=== PATIENT | female | born 1955 | race Caucasian/White ===

== ENCOUNTER 2021-01-02 20:48 | Emergency (ER) | payer OTHER, SELFPAY ==
[2021-01-02 20:49] VITALS: BP 130/71; PULSE 91; RESP 16; TEMP 36.5; O2SAT 95; BMI 20.5
--- NOTE | 2021-01-02 22:09 | CT_ITS ---
EXAMINATION : Head CT w/out contrast HISTORY : vertigo COMPARISON : None. TECHNIQUE : Multiple contiguous axial images were obtained from the skull base to the vertex without intravenous contrast. A radiation dose optimization technique was used for this scan. FINDINGS : The ventricles and sulci are normal in size. There is no evidence for acute intracranial hemorrhage, mass effect, or midline shift. There is no extra-axial fluid collection. There is normal kramer-white differentiation, without CT evidence of acute ischemia or infarct. The skull base and calvarium are unremarkable. The orbits are unremarkable. Severe mucosal thickening of the maxillary, sphenoid, frontal sinuses and ethmoid air cells. The mastoid air cells are well-aerated. The soft tissues are unremarkable. CT/Brain/Head without Contrast IMPRESSION: No acute intracranial abnormality. Severe sinusitis. Consider ENT consult. Electronically Signed: Abraham Harkins MD at 23:01 EDT Tel , Service support ,
--- NOTE | 2021-01-02 22:10 | EX.ED.DYSGE1 ---
HPI History of Present Illness Chief Complaint: Dizziness Narrative Narrative: Patient presents with vertigo that started when she woke up this morning. She describes as a spinning sensation. She has no vision changes no facial weakness, she is denying chest pain or shortness of breath. She has no confusion. PFSH PFSH Home Medications ascorbic acid (vitamin C) [Vitamin C] 500 mg PO DAILY 01/02/21 [History Last Taken Unknown] meclizine 25 mg PO DAILY PRN #14 tab 01/02/21 [Rx Last Taken Unknown] Allergy/AdvReac Type Severity Reaction Status Date / Time No Known Allergies Allergy Verified 01/02/21 20:51 Social History Smoking Status: Never smoker ROS ROS ED ROS Narrative Past medical history: No medical history Medications: Reviewed Social history: Noncontributory Review of systems: All systems negative except as indicated General: No fever Eyes: No visual changes ENT: No upper airway congestion, normal voice Neck: No neck pain Cardiovascular: No chest pain Respiratory: No shortness of breath or cough Gastrointestinal: No abdominal pain, nausea vomiting or diarrhea Genitourinary: No dysuria Musculoskeletal: Denies myalgias no difficulty with ambulation Skin: No rash Neurological: No memory loss, confusion or any focal weakness. Vertigo as in HPI Psych: No recent behavioral changes Hematologic: No easy bleeding or easy bruising EXAM Physical Exam Narrative Exam Narrative: Physical exam General: Well nourished, Well developed, No Acute Distress Head: Normocephalic, Atraumatic Eyes: Conjunctiva not pale ENT: Moist mucous membranes Neck: Supple, Nontender, No lymphadenopathy Cardiovascular: Regular rate, Regular rhythm Respiratory: No distress, CTA bilaterally Abdomen: Soft, Nontender, Nondistended Back: Nontender, Normal Inspection. Negative for: CVA tenderness Extremities: Nontender, No edema Skin: Normal color, No rash Neurological: Alert, Normal Strength, Normal Sensation. She does have rightward saccade. Romberg is negative. Cerebellar is normal Psychological: Normal affect Const Vital Signs: 01/02/21 20:49 Temperature 97.7 F L Temperature Source Temporal Pulse Rate 91 Respiratory Rate 16 Blood Pressure 130/71 H Blood Pressure Mean 90 Pulse Ox 95 Oxygen Delivery Method Room Air MDM MDM MDM Narrative Medical decision making narrative: Patient has a normal CT and blood work, she significantly improved with Zofran and meclizine. Signs and symptoms are consistent with peripheral vertigo. I will refer to ENT otherwise I will discharge her in stable condition. Lab Data Labs: Laboratory Results - last 24 hr 01/02/21 01/02/21 22:30 22:30 WBC 6.3 RBC 4.22 Hgb 13.2 Hct 38.2 MCV 90.5 MCH 31.3 MCHC 34.6 RDW Std Deviation 40.4 RDW Coeff of Thompson 12.3 Plt Count 212 MPV 9.6 Immature Gran % (Auto) 0.300 Neut % (Auto) 80.0 H Lymph % (Auto) 15.6 L Kingsbury % (Auto) 3.7 Eos % (Auto) 0.2 Baso % (Auto) 0.2 Absolute Neuts (auto) 5.0 Absolute Lymphs (auto) 0.98 Nucleated RBC % 0 Sodium 135 L Potassium 3.5 Chloride 104 Carbon Dioxide 24.0 Anion Gap 7 BUN 12 Creatinine 0.60 Estim Creat Clear Calc 86.14 Est GFR (MDRD) Af Amer 130 Est GFR (MDRD) Non-Af 108 BUN/Creatinine Ratio 20.1 H Glucose 106 Calcium 8.8 Total Bilirubin 0.70 AST 19 ALT 26 Alkaline Phosphatase 44 L Total Protein 7.1 Albumin 3.8 Globulin 3.3 Albumin/Globulin Ratio 1.2 Radiography Diagnostic Testing: Radiology Impression Brain CT 01/02/21 22:09 IMPRESSION: No acute intracranial abnormality. Severe sinusitis. Consider ENT consult. Electronically Signed: Abraham Harkins MD at 23:01 EDT Tel , Service support , Discharge Plan Triage Chief Complaint: Dizziness ED Provider: Marshall Warner Dx/Rx/DC Orders Clinical Impression: Vertigo Instructions: ED Vertigo, Unspecified Prescriptions: New meclizine 25 mg tablet 25 mg PO DAILY PRN (Reason: dizziness) Qty: 14 RF: 0 No Action ascorbic acid (vitamin C) [Vitamin C] 500 mg Tablet 500 mg PO DAILY RF: 0 Primary Care Provider: Love Meza Referrals: Love Meza DO [Primary Care Provider] - Miky Flaherty MD [STAFF PHYSICIAN] - 3-5 Days Disposition Disposition: Home, Self Care
[2021-01-02] MEDS: Ondansetron 4 MG/2 ML Vial IV (22:27)
[2021-01-02] MEDS: Meclizine HCl 25 MG Tablet PO (22:33)
[2021-01-02 22:47] LABS: Absolute Lymphocyte Count 0.98 X10^3/uL (0.83-4.51); Basophil# 0.01 X10^3/uL; Basophil% 0.2 % (0-1); Eosinophil# 0.01 X10^3/uL; Eosinophils% 0.2 % (0-5); Hematocrit 38.2 % (37-47); Hemoglobin 13.2 g/dL (12.0-15.0); Lymphocyte # 0.98 X10^3/ul (0.83-4.51); Lymphocyte % 15.6 % (19-41); Mean Corp Hgb Conc 34.6 g/dL (32-36); Mean Corpuscular Hgb 31.3 pg (27.0-32.0); Mean Corpuscular Volume 90.5 fL (81-99); Mean Platelet Vol. 9.6 fl (6.2-12.0); Monocyte# 0.23 X10^3/uL; Monocyte% 3.7 % (0-10); NRBC Flagged by Analyzer 0 % (0-5); Neutrophil # 5.03 X10^3/uL (2.7-7.7); Platelet Count 212 K/mm3 (150-450); RBC Distribution Width CV 12.3 % (11.6-14.6); RBC Distribution Width SD 40.4 fl (35.1-43.9); Red Blood Count 4.22 M/mm3 (4.2-5.4); White Blood Count 6.3 K/mm3 (4.4-11.0)
[2021-01-02 23:05] LABS: ALB/GLOB Ratio 1.2 RATIO (0.9-2.4); AST(SGOT) 19 U/L (15-37); Alanine Aminotransfer ALT/SGPT 26 U/L (13-56); Albumin, Serum 3.8 g/dL (3.2-5.0); Alkaline Phosphatase 44 U/L (45-117); Anion Gap 7 (5-15); BUN 12 mg/dL (7-18); BUN/Creat Ratio 20.1 RATIO (10-20); Calcium,Total 8.8 mg/dL (8.5-10.1); Chloride 104 mmol/L (98-107); EST Glomerular Filtration Rate 108 mL/min (>60); Est Glom Filt Rate - Afr Amer 130 mL/min (>60); Estimated Creatinine Clearance 86.14 ml/min; Globulin 3.3 g/dL (2.2-4.2); Glucose 106 mg/dL (74-106); Potassium 3.5 mmol/L (3.5-5.1); Protein, Total 7.1 g/dL (6.4-8.2); Sodium Level 135 mmol/L (136-145)
[2021-01-02 23:37] VITALS: PULSE 64; RESP 15; O2SAT 99
== END 2021-01-02 23:38 | disposition home or self-care (01) ==
PROVIDERS: Emergency Provider Emergency Medicine; PCP Internal Medicine
DX: R42 Dizziness and giddiness (principal)
CPT/HCPCS: 70450; 80053; 85025; 96374; 99283; J7040; A4216; J2405

== ENCOUNTER → 2022-09-09 | Outpatient (CLI) | payer MEDICARE, SELFPAY ==
--- NOTE | 2022-09-09 09:34 | BI_ITS ---
MAMMOGRAPHY - BILATERAL SCREENING REASON FOR EXAM: Female, 66 years old. Routine annual screening examination. PERTINENT HISTORY: Non-contributory. TECHNIQUE: Digital bilateral breast nicky (3D mammographic acquisition) in the CC and MLO projections. 2-D mediolateral oblique (MLO) and craniocaudad (CC) views of both breasts were obtained. CAD: Full Field Digital Mammography with Computer Added Detection was performed. COMPARISON: Comparison is made with prior study dated February 06, 2014. FINDINGS: Breast Composition: There are scattered areas of fibroglandular density. There are no dominant masses or suspicious calcifications. Scattered bilateral secretory calcifications. No other significant abnormalities are identified. There has been no significant change since the prior study. BI/SCRN MAMM (CAD)W/NICKY BILAT IMPRESSION: Stable bilateral screening mammogram. Yearly follow-up mammogram recommended. (A) ASSESSMENT CATEGORY: BIRADS Category 2: Benign. A letter regarding these results will be sent to the patient by the facility within 30 days. Approximately 10% of breast cancers are not detected by mammography. A normal mammogram should not delay biopsy of a clinically suspicious abnormality. [id number] Electronically Signed: Denny Crisostomo MD at 13:11 EST ,
--- NOTE | 2022-09-09 09:40 | BD_ITS ---
STUDY: DUAL ENERGY X-RAY ABSORPTIOMETRY / DXA REASON FOR EXAM: Female, 66 years old. [id number] TECHNIQUE: Bone Mineral Density (BMD) measurements of lumbar spine and bilateral hips were obtained. COMPARISON: Comparison is made with prior study February 06, 2014. FINDINGS: Lumbar Spine (L1-L4): g/cm2 (0.899) / T-score (-1.3) / Z-score (0.5) Findings are suggestive of osteopenia with a low fracture risk. Left Femur Total: g/cm2 (0.790) / T-score (-1.2) / Z-score (0.0) Left Femoral Neck: g/cm2 (0.680) / T-score (-1.5) / Z-score (0.0) Right Femur Total: g/cm2 (0.789) / T-score (-1.3) / Z-score (0.0) Right Femoral Neck: g/cm2 (0.696) / T-score (-1.4) / Z-score (0.2) The T-Scores on the most recent prior examination were: Lumbar Spine (L1-L4): There has been worsening of bone density since the previous examination. Left Femur Total: which represents a worsening of 11%. Right Femur Total: which represents a worsening of 17.1%. BD/Dexa Bone Density Study IMPRESSION: The patient is considered osteopenic as outlined below according to World Hemant Organization (WHO) criteria with a low fracture risk. There has been worsening of bone density since the previous examination. Reference Information: The T-score is the number of standard deviations above or below the standard which is normal for young adults at their peak bone mineral density. The World Health Organization (WHO) interprets the T-scores as follows: Above -1 Normal bone density Between -1 and -2.5 Osteopenia Equal to / or below -2.5 Osteoporosis As a practical clinical guideline, osteopenia may be graded as follows: Mild -1 through -1.5 Moderate -1.6 through -2.0 Severe -2.1 through -2.4 The Z-score is the number of standard deviations above or below age-matched controls. A Z-score of less than -1.5 would be considered abnormal. References: 1. NIH Osteoporosis and Related Bone Diseases www osteo.org 2. International Society for Clinical Densitometry www iscd.org 3. National Osteoporosis Foundation www nof.org Electronically Signed: Denny Crisostomo MD at 8:12 EST ,
== END | disposition home or self-care (01) ==
PROVIDERS: PCP Internal Medicine; Visit Provider Internal Medicine
DX: Z13.820 Encounter for screening for osteoporosis (principal); Z78.0 Asymptomatic menopausal state; Z12.31 Encounter for screening mammogram for malignant neoplasm of breast
CPT/HCPCS: 77063; 77067; 77080

== ENCOUNTER → 2023-07-07 | Outpatient (CLI) | payer MEDICARE, SELFPAY ==
--- OUTSIDE RECORDS SUMMARY | 2023-07-07 17:00 | XMS RPT_ITS | CCD ---
Author Name Unknown Address [address] [place] [address] Organization [facility] Care Team Providers Care Ropeman Name Role Phone Love Meza Unavailable Roxanne Sequeira Unavailable Fast, Gina A Unavailable Leonor Martinez Unavailable Unavailable Unavailable Unavailable TAY CAMEJO Attending Unavailable TAY CAMEJO Primary Care Unavailable TAY CAMEJO Admitting Unavailable SusanaLara tran DOhleen Unavailable Dr. Roxanne Sequeira MD Unavailable Fast DO, Gina A Unavailable Leonor Martinez RN Unavailable Unavailable Unavailable Unavailable Susana DO, Love Unavailable [phone] VIDEO SOFTWARE ENGINEER, Kayela Unavailable Unavailable Susana DO, Love Attending Unavailable Fast DO, Gina A Referring Unavailable Susana DO Love Consulting Unavailable Slarb FIELD SERVICER, Cecilia Unavailable Unavailable Medications Completed/Discontinued Medications Medication Drug Class(es) Dates Sig (Normalized) Sig (Original) ciprofloxacin 500 mg oral tablet (10 sources) Quinolone Antimicrobial Start: 12-03-2015 End: 03-21-2018 take 1 tablet by mouth twice daily Cipro 500 MG Oral Tablet 1 (one) Tablet bid for 0 days Quantity: 20 {Tablet} Refills: 0 Ordered: 21-Mar-2018 Leonor Martinez RN Start : 03-Dec-2015 End : 21-Mar-2018 Inactive Herbal vitamins (3 sources) Herbal vitamins tablets daily Active Problems Active Problems Problem Classification Problem Date Documented Da te Episodic/Chronic Abdominal pain (17 sources) Acute abdominal pain; Translations: [Abdominal pain, acute, left lower quadrant (Renamed from Acute abdominal pain in left lower quadrant)] Resolved: 03-21-2018 03-21-2018 Episodic Adjustment disorders (20 sources) Reaction to severe stress, unspecified; Translations: [Stress-related problem] 07-25-2018 Chronic Past or Other Problems Problem Classification Problem Date Documented Date Episodic/Chronic Pneumonia (except that caused by tuberculosis or sexually transmitted disease) (2 sources) Pneumonia (except that caused by tuberculosis or sexually transmitted disease) Residual codes; unclassified (2 sources) Needs influenza immunization; Translations: [Need for prophylactic vaccination and inoculation against influenza] Resolved: 12-18-2013 04-09-2015 Episodic Unclassified (3 sources) Postmenopausal (Renamed from Postmenopausal status) Unclassified (10 sources) Abortions/Miscarriage s; Translations: [Abortions/Miscarriag es] 07-25-2018 Results Test Name Value Interpretation Reference Range Facil ity Vital Signs Date Time Vital Sign Value Performing Clinician Facility 09-21-2022 10:17-0400 Body height 163.83 cm Cecilia Suarez LPN [facility] Work Phone: 09-21-2022 10:17-0400 Body mass index (BMI) [Ratio] 22.88 kg/m2 Cecilia Suarez LPN [facility] Work Phone: 09-21-2022 10:17-0400 Body surface area Derived from formula 1.67 m2 Cecilia Suarez LPN [facility] Work Phone: 09-21-2022 10:17-0400 Body temperature 96.2 [degF] Cecilia Suarez LPN [facility] Work Phone: Encounters Encounter Date Encounter Type Care Provider Facility Start: 09-21-2022 End: 09-21-2022 Office outpatient visit 15 minutes Love Meza DO Work Phone: [facility] Start: 09-21-2022 Review Love larkin DO Work Phone: [facility] Start: 09-11-2022 ambulatory Love Meza DO [facility] Start: 08-10-2022 End: 08-12-2022 Patient encounter procedure Love Meza DO Work Phone: [facility] Procedures Date Procedure Procedure Detail Performing Clinician Start: 09-09-2022 End: 09-10-2022 Dexa Bone Density Study Procedure Note: See Note; NOTES: [facility] Imaging Services [address] [place] [address] Dexa Bone Density Study MR#: [id number] Acct: [id number] Name: MARY MG Rep #: [id number] : 1955 F 66 From: Denny johnson MD PCP: Dr. Love Meza, DO Status: [facility] CLI Study: Dexa Bone Density Study Date of Exam: 09/09/22 Exam# [id number] Ordering Dr: Love Meza DO STUDY: DUAL ENERGY X-RAY ABSORPTIOMETRY / DXA REASON FOR EXAM: Female, 66 years old. Z780 TECHNIQUE: Bone Mineral Density (BMD) measurements of lumbar spine and bilateral hips were obtained. COMPARISON: Comparison is made with prior study February 06, 2014. FINDINGS: Lumbar Spine (L1-L4): g/cm2 (0.899) / T-score (-1.3) / Z-score (0.5) Findings are suggestive of osteopenia with a low fracture risk. Left Femur Total: g/cm2 (0.790) / T-score (-1.2) / Z-score (0.0) Left Femoral Neck: g/cm2 (0.680) / T-score (-1.5) / Z-score (0.0) Right Femur Total: g/cm2 (0.789) / T-score (-1.3) / Z-score (0.0) Right Femoral Neck: g/cm2 (0.696) / T-score (-1.4) / Z-score (0.2) The T-Scores on the most recent prior examination were: Lumbar Spine (L1-L4): There has been worsening of bone density since the previous examination. Left Femur Total: which represents a worsening of 11%. Right Femur Total: which represents a worsening of 17.1%. BD/Dexa Bone Density Study IMPRESSION: The patient is considered osteopenic as outlined below according to World Hemant Organization (WHO) criteria with a low fracture risk. There has been worsening of bone density since the previous examination. Reference Information: The T-score is the number of standard deviations above or below the standard which is normal for young adults at their peak bone mineral density. The World Health Organization (WHO) interprets the T-scores as follows: Above -1 Normal bone density Between -1 and -2.5 Osteopenia Equal to / or below -2.5 Osteoporosis As a practical clinical guideline, osteopenia may be graded as follows: Mild -1 through -1.5 Moderate -1.6 through -2.0 Severe -2.1 through -2.4 The Z-score is the number of standard deviations above or below age-matched controls. A Z-score of less than -1.5 would be considered abnormal. References: 1. NIH Osteoporosis and Related Bone Diseases www osteo.org 2. International Society for Clinical Densitometry www iscd.org 3. National Osteoporosis Foundation www nof.org Electronically Signed: Denny Crisostomo MD at 8:12 EST Reading Location ID and State: [facility] / [place] , Service support , CC: Dr. Love Meza DO Hardwood Floor Installer: Signed Love Meza DO Work Phone: Start: 09-09-2022 End: 09-09-2022 SCRN MAMM (CAD)W/NICKY BILAT Procedure Note: See Note; NOTES: [facility] Imaging Services [address] [place] [address] SCRN MAMM (CAD)W/NICKY BILAT MR#: [id number] Acct: [id number] Name: MARY MG Rep #: [id number] : 1955 F 66 From: Denny johnson MD PCP: Dr. Love Meza, DO Status: [facility] Study: SCRN MAMM (CAD)W/NICKY BILAT Date of Exam: 02/24 Exam# [id number] Ordering Dr: Love Meza DO MAMMOGRAPHY - BILATERAL SCREENING REASON FOR EXAM: Female, 66 years old. Routine annual screening examination. PERTINENT HISTORY: Non-contributory. TECHNIQUE: Digital bilateral breast nicky (3D mammographic acquisition) in the CC and MLO projections. 2-D mediolateral oblique (MLO) and craniocaudad (CC) views of both breasts were obtained. CAD: Full Field Digital Mammography with Computer Added Detection was performed. COMPARISON: Comparison is made with prior study dated February 06, 2014. FINDINGS: Breast Composition: There are scattered areas of fibroglandular density. There are no dominant masses or suspicious calcifications. Scattered bilateral secretory calcifications. No other significant abnormalities are identified. There has been no significant change since the prior study. BI/SCRN MAMM (CAD)W/NICKY BILAT IMPRESSION: Stable bilateral screening mammogram. Yearly follow-up mammogram recommended. (A) ASSESSMENT CATEGORY: BIRADS Category 2: Benign. A letter regarding these results will be sent to the patient by the facility within 30 days. Approximately 10% of breast cancers are not detected by mammography. A normal mammogram should not delay biopsy of a clinically suspicious abnormality. [id number] Electronically Signed: Denny Crisostomo MD at 13:11 EST , CC: Dr. Love Meza DO Hardwood Floor Installer: Signed Love Meza DO Work Phone: Start: 01-02-2021 End: 01-02-2021 Emergency Department Summary Comments: See Note; NOTES: [facility] Medical Records Department [address] [place] [address] Emergency Department Summary 01/02/21 MR#: [id number] Acct: [id number] Name: MARY MG Rep #: [id number] : 1955 65 From: Marshall Warner MD PCP: Dr. Love Meza DO Status:REG ER Location: ED HPI History of Present Illness Chief Complaint: Dizziness Narrative Narrative: Patient presents with vertigo that started when she woke up this morning. She describes as a spinning sensation. She has no vision changes no facial weakness, she is denying chest pain or shortness of breath. She has no confusion. PFSH PFSH Home Medications ascorbic acid (vitamin C) [Vitamin C] 500 mg PO DAILY 01/02/21 [History Last Taken Unknown] meclizine 25 mg PO DAILY PRN #14 tab 01/02/21 [Rx Last Taken Unknown] Allergy/AdvReac Type Severity Reaction Status Date / Time No Known Allergies Allergy Verified 01/02/21 20:51 Social History Smoking Status: Never smoker ROS ROS ED ROS Narrative Past medical history: No medical history Medications: Reviewed Social history: Noncontributory Review of systems: All systems negative except as indicated General: No fever Eyes: No visual changes ENT: No upper airway congestion, normal voice Neck: No neck pain Cardiovascular: No chest pain Respiratory: No shortness of breath or cough Gastrointestinal: No abdominal pain, nausea vomiting or diarrhea Genitourinary: No dysuria Musculoskeletal: Denies myalgias no difficulty with ambulation Skin: No rash Neurological: No memory loss, confusion or any focal weakness. Vertigo as in HPI Psych: No recent behavioral changes Hematologic: No easy bleeding or easy bruising EXAM Physical Exam Narrative Exam Narrative: Physical exam General: Well nourished, Well developed, No Acute Distress Head: Normocephalic, Atraumatic Eyes: Conjunctiva not pale ENT: Moist mucous membranes Neck: Supple, Nontender, No lymphadenopathy Cardiovascular: Regular rate, Regular rhythm Respiratory: No distress, CTA bilaterally Abdomen: Soft, Nontender, Nondistended Back: Nontender, Normal Inspection. Negative for: CVA tenderness Extremities: Nontender, No edema Skin: Normal color, No rash Neurological: Alert, Normal Strength, Normal Sensation. She does have rightward saccade. Romberg is negative. Cerebellar is normal Psychological: Normal affect Const Vital Signs: 01/02/21 20:49 Temperature 97.7 F L Temperature Source Temporal Pulse Rate 91 Respiratory Rate 16 Blood Pressure 130/71 H Blood Pressure Mean 90 Pulse Ox 95 Oxygen Delivery Method Room Air MDM MDM MDM Narrative Medical decision making narrative: Patient has a normal CT and blood work, she significantly improved with Zofran and meclizine. Signs and symptoms are consistent with peripheral vertigo. I will refer to ENT otherwise I will discharge her in stable condition. Lab Data Labs: Laboratory Results - last 24 hr 01/02/21 01/02/21 22:30 22:30 WBC 6.3 RBC 4.22 Hgb 13.2 Hct 38.2 MCV 90.5 MCH 31.3 MCHC 34.6 RDW Std Deviation 40.4 RDW Coeff of Thompson 12.3 Plt Count 212 MPV 9.6 Immature Gran % (Auto) 0.300 Neut % (Auto) 80.0 H Lymph % (Auto) 15.6 L [place] % (Auto) 3.7 Eos % (Auto) 0.2 Baso % (Auto) 0.2 Absolute Neuts (auto) 5.0 Absolute Lymphs (auto) 0.98 Nucleated RBC % 0 Sodium 135 L Potassium 3.5 Chloride 104 Carbon Dioxide 24.0 Anion Gap 7 BUN 12 Creatinine 0.60 Estim Creat Clear Calc 86.14 Est GFR (MDRD) Af Amer 130 Est GFR (MDRD) Non-Af 108 BUN/Creatinine Ratio 20.1 H Glucose 106 Calcium 8.8 Total Bilirubin 0.70 AST 19 ALT 26 Alkaline Phosphatase 44 L Total Protein 7.1 Albumin 3.8 Globulin 3.3 Albumin/Globulin Ratio 1.2 Radiography Diagnostic Testing: Radiology Impression Brain CT 01/02/21 22:09 IMPRESSION: No acute intracranial abnormality. Severe sinusitis. Consider ENT consult. Electronically Signed: bAraham Harkins MD at 23:01 EDT Tel , Service support , Discharge Plan Triage Chief Complaint: Dizziness ED Provider: Marshall Warner Dx/Rx/DC Orders Clinical Impression: Vertigo Instructions: ED Vertigo, Unspecified Prescriptions: New meclizine 25 mg tablet 25 mg PO DAILY PRN (Reason: dizziness) Qty: 14 RF: 0 No Action ascorbic acid (vitamin C) [Vitamin C] 500 mg Tablet 500 mg PO DAILY RF: 0 Primary Care Provider: Love Meza Referrals: Love Meza DO [Primary Care Provider] - Miky Flaherty MD [STAFF PHYSICIAN] - 3-5 Days Disposition Disposition: Home, Self Care What to do if you have Problems For any increased pain, shortness of breath, bleeding, nausea or vomiting, chest pain, or any unexpected problems, contact your Primary Care Provider. Call [facility] ([phone]) or report to the closest Emergency Room. Call 911 if necessary. 01/02/21 8615 <Electronically signed by Marshall Warner MD> Cosigner Signature (if applicable): CC: Dr. Love Meza DO Signed Love Meza DO Work Phone: Start: 01-02-2021 End: 01-02-2021 Brain/Head without Contrast Comments: See Note; NOTES: [facility] Imaging Services [address] [place] [address] Brain/Head without Contrast MR#: [id number] Acct: [id number] Name: BANDARSTEVENMARY Amaury Rep #: [id number] : 1955 F 65 From: Abraham sanabria MD PCP: Dr. Love Meza DO Status: REG ER Study: Brain/Head without Contrast Date of Exam: 07/25 Exam# [id number] Ordering Dr: Marshall Warner MD EXAMINATION : Head CT w/out contrast HISTORY : vertigo COMPARISON : None. TECHNIQUE : Multiple contiguous axial images were obtained from the skull base to the vertex without intravenous contrast. A radiation dose optimization technique was used for this scan. FINDINGS : The ventricles and sulci are normal in size. There is no evidence for acute intracranial hemorrhage, mass effect, or midline shift. There is no extra-axial fluid collection. There is normal kramer-white differentiation, without CT evidence of acute ischemia or infarct. The skull base and calvarium are unremarkable. The orbits are unremarkable. Severe mucosal thickening of the maxillary, sphenoid, frontal sinuses and ethmoid air cells. The mastoid air cells are well-aerated. The soft tissues are unremarkable. CT/Brain/Head without Contrast IMPRESSION: No acute intracranial abnormality. Severe sinusitis. Consider ENT consult. Electronically Signed: Abraham Harkins MD at 23:01 EDT Tel , Service support , CC: Dr. Love Meza DO; Dr. Marshall Warner MD Hardwood Floor Installer: Signed Love Meza DO Work Phone: Start: 12-12-2020 Urinalysis TAY BASHIR Plan of Treatment Date Care Activity Detail Author Start: 09-21-2022 Procedure Education Eprescribed prescriptions (G8553) [facility]; [facility] Work Phone: Start: 09-21-2022 Provider Instructions for Treatment Reviewed Diagnostic Tests [facility]; [facility] Work Phone: Start: 09-21-2022 Lipid panel LIPID PANEL (63277) [facility]; [facility] Work Phone: Start: 08-10-2022 Procedure Education Eprescribed prescriptions (G8553) [facility]; [facility] Work Phone: Start: 08-10-2022 Provider Instructions for Treatment [facility]; [facility] Work Phone: Start: 08-10-2022 Blood count complete auto&auto difrntl wbc CBC W/AUTO DIFF WBC (30325) [facility]; [facility] Work Phone: Start: 08-10-2022 Comprehensive metabolic panel METABOLIC PANEL, COMPREHENSIVE (41835) [facility]; [facility] Work Phone: Start: 08-10-2022 Assay of thyroid stimulating hormone tsh TSH (38708) [facility]; [facility] Work Phone: Start: 08-10-2022 Hepatitis c antibody HEPATITIS C ANTIBODY (45405) [facility]; [facility] Work Phone: Start: 08-10-2022 Oncology colorectal screening rory 10 dna markrs Cologuard - Strool Based DNA Test, CRC SCREEN (22413) [facility]; [facility] Work Phone: Start: 10-31-2018 Provider Instructions for Treatment Follow up in 4 months [facility] Work Phone: Start: 10-31-2018 Lipoprotein blood rory numbers & subclasses NMR Profile (89967) [facility]; [facility] Work Phone: Start: 10-31-2018 Protein mass conc NMR Profile (99100) [facility] Work Phone: Start: 10-31-2018 Assay of thyroid stimulating hormone tsh TSH (36901) [facility]; [facility] Work Phone: Start: 10-31-2018 Thyrotropin Qn TSH (80393) [facility] Work Phone: Start: 10-31-2018 Urnls dip stick/tablet reagent auto microscopy URINALYSIS, W/ MICRO (58845) [facility] Work Phone: Start: 10-31-2018 Urine albumin quantitative MICROALBUMIN: CREATININE RATIO (08219) AND (62668) [facility] Work Phone: Start: 10-31-2018 Comprehensive metabolic panel METABOLIC PANEL, COMPREHENSIVE (13262) [facility] Work Phone: Start: 10-31-2018 Blood count complete auto&auto difrntl wbc CBC W/AUTO DIFF WBC (02295) [facility] Work Phone: Start: 07-25-2018 Cytp cerv/vag auto thin layer prep mnl screen Thin prep Pap (23061) (no STD testing) [facility] Work Phone: Start: 07-25-2018 Provider Instructions for Treatment [facility] Work Phone: Start: 12-03-2015 Procedure Education Eprescribed prescriptions (G8553) [facility] Work Phone: Start: 01-10-2014 Provider Instructions for Treatment Pap/Pelvic/Bimanual/Rec marielena/Breast Exam was done. [facility] Work Phone: Start: 01-10-2014 Hpv, dna, amp probe HPV automatic (43023) [facility] Work Phone: Start: 01-10-2014 Cytp cerv/vag auto thin layer prep mnl screen Thin prep Pap (25042) [facility] Work Phone: Start: 12-18-2013 Procedure Education Eprescribed prescriptions (G8553) [facility] Work Phone: Start: 12-08-2011 Patient Education Chest Pain, Noncardiac: pain [facility] Work Phone: Start: 12-08-2011 Calcium mass conc CALCIUM SERUM (99996) [facility] Work Phone: Start: 12-08-2011 Calcium total CALCIUM SERUM (75644) [facility] Work Phone: Start: 12-08-2011 Basic metabolic panel calcium total Metabolic Panel, Basic (00254) [facility] Work Phone: [facility] Work Phone: [facility] Work Phone: [facility] Work Phone: [facility] Work Phone: [facility] Work Phone: [facility] Work Phone: Chest pain : [facility] Pain, Noncardiac: pain [facility] Work Phone: [facility] Work Phone: Payers Date Payer Category Payer Private Health Insurance [id number] 2018 Unknown [id number] 2017 Unknown [id number] 1955 Unknown [id number] Unknown Unknown [id number] Social History Date Type Detail Facility Caffeine Use Never smoker [facility] Work Phone: Tobacco use: Never smoker. [facility] Work Phone: Tobacco use: Tobacco use: [facility] Work Phone: Instructions Note Date & Type Note Facility [facility]; [facility] Work Phone: Instructions Note Date & Type Note Facility [facility]; [facility] Work Phone: Instructions Note Date & Type Note Facility [facility]; [facility] Work Phone: Instructions Note Date & Type Note Facility [facility]; [facility] Work Phone: Instructions Note Date & Type Note Facility [facility]; [facility] Work Phone: Instructions Note Date & Type Note Facility [facility]; [facility] Work Phone: Family History Unknown Family Member Name Dates Details Father Comments:deeased at age 77- from lung problems - no heart issues Status:Active Mother Comments:- from a female cancer- no heart problems- age 80 Status:Active Sister 1 Comments:had mi in her 60s Status:Active Unknown Family Member Name Dates Details Father Comments:deeased at age 77- from lung problems - no heart issues Status:Active Mother Comments:- from a female cancer- no heart problems- age 80 Status:Active Sister 1 Comments:had mi in her 60s Status:Active Unknown Family Member Name Dates Details Father Comments:deeased at age 77- from lung problems - no heart issues Status:Active Mother Comments:- from a female cancer- no heart problems- age 80 Status:Active Sister 1 Comments:had mi in her 60s Status:Active Unknown Family Member Name Dates Details Father Comments:deeased at age 77- from lung problems - no heart issues Status:Active Mother Comments:- from a female cancer- no heart problems- age 80 Status:Active Sister 1 Comments:had mi in her 60s Status:Active Unknown Family Member Name Dates Details Father Comments:deeased at age 77- from lung problems - no heart issues Status:Active Mother Comments:- from a female cancer- no heart problems- age 80 Status:Active Sister 1 Comments:had mi in her 60s Status:Active Unknown Family Member Name Dates Details Father Comments:deeased at age 77- from lung problems - no heart issues Status:Active Mother Comments:- from a female cancer- no heart problems- age 80 Status:Active Sister 1 Comments:had mi in her 60s Status:Active Unknown Family Member Name Dates Details Father Comments:deeased at age 77- from lung problems - no heart issues Status:Active Mother Comments:- from a female cancer- no heart problems- age 80 Status:Active Sister 1 Comments:had mi in her 60s Status:Active Unknown Family Member Name Dates Details Father Comments:deeased at age 77- from lung problems - no heart issues Status:Active Mother Comments:- from a female cancer- no heart problems- age 80 Status:Active Sister 1 Comments:had mi in her 60s Status:Active Instructions Name Dates Details BMI 27.0-27.9,adult : How to access health information online - Detail Indication:BMI 27.0-27.9,adult BMI 27.0-27.9,adult : How to access health information online Indication:BMI 27.0-27.9,adult BMI 27.0-27.9,adult : Patien t Instructions Indication:BMI 27.0-27.9,adult Impaired Fasting Glucose (Re named from Elevated fasting blood sugar) : How to access health information online Indication:Impaired Fasting Glucose (Renamed from Elevated fasting blood sugar) Impaired Fasting Glucose (Re named from Elevated fasting blood sugar) : How to access health information online - Detail Indication:Impaired Fasting Glucose (Renamed from Elevated fasting blood sugar) Impaired Fasting Glucose (Re named from Elevated fasting blood sugar) : Patient Instructions Indication:Impaired Fasting Glucose (Renamed from Elevated fasting blood sugar) Abdominal pain, acute, left lower quadrant (Renamed from Acute abdominal pain in left lower quadrant) : How to access health information online Indication:Abdominal pain, acute, left lower quadrant (Renamed from Acute abdominal pain in left lower quadrant) Abdominal pain, acute, left lower quadrant (Renamed from Acute abdominal pain in left lower quadrant) : How to access health information online - Detail Indication:Abdominal pain, acute, left lower quadrant (Renamed from Acute abdominal pain in left lower quadrant) Abdominal pain, acute, left lower quadrant (Renamed from Acute abdominal pain in left lower quadrant) : Patient Instructions Indication:Abdominal pain, acute, left lower quadrant (Renamed from Acute abdominal pain in left lower quadrant) Well woman exam with routine gynecological exam : How to access health information online Indication:Well woman exam with routine gynecological exam Well woman exam with routine gynecological exam : How to access health information online - Detail Indication:Well woman exam with routine gynecological exam Well woman exam with routine gynecological exam : Patient Instructions Indication:Well woman exam with routine gynecological exam Hypercalcemia : Patient Inst ructions Indication:Hypercalcemia Name Dates Details How to access health informa tion online Indication:Impaired Fasting Glucose (Renamed from Elevated fasting blood sugar) Start:31-Oct-2018 Instruction Type:Patient Education How to access health informa tion online - Detail Indication:Impaired Fasting Glucose (Renamed from Elevated fasting blood sugar) Start:31-Oct-2018 Instruction Type:Patient Education Patient Instructions Indication:Impaired Fasting Glucose (Renamed from Elevated fasting blood sugar) Start:31-Oct-2018 Instruction Type:Provider Instructions for Treatment How to access health informa tion online - Detail Indication:BMI 27.0-27.9,adult Start:25-Jul-2018 Instruction Type:Patient Education How to access health informa tion online Indication:BMI 27.0-27.9,adult Start:25-Jul-2018 Instruction Type:Patient Education Patient Instructions Indication:BMI 27.0-27.9,adult Start:25-Jul-2018 Instruction Type:Provider Instructions for Treatment How to access health informa tion online Indication:Impaired Fasting Glucose (Renamed from Elevated fasting blood sugar) Start:21-Mar-2018 Instruction Type:Patient Education How to access health informa tion online - Detail Indication:Impaired Fasting Glucose (Renamed from Elevated fasting blood sugar) Start:21-Mar-2018 Instruction Type:Patient Education Patient Instructions Indication:Impaired Fasting Glucose (Renamed from Elevated fasting blood sugar) Start:21-Mar-2018 Instruction Type:Provider Instructions for Treatment How to access health informa tion online Indication:Abdominal pain, acute, left lower quadrant (Renamed from Acute abdominal pain in left lower quadrant) Start:03-Dec-2015 Instruction Type:Patient Education How to access health informa tion online - Detail Indication:Abdominal pain, acute, left lower quadrant (Renamed from Acute abdominal pain in left lower quadrant) Start:03-Dec-2015 Instruction Type:Patient Education Patient Instructions Indication:Abdominal pain, acute, left lower quadrant (Renamed from Acute abdominal pain in left lower quadrant) Start:03-Dec-2015 Instruction Type:Provider Instructions for Treatment How to access health informa tion online Indication:Well woman exam with routine gynecological exam Start:10-Jan-2014 Instruction Type:Patient Education How to access health informa tion online - Detail Indication:Well woman exam with routine gynecological exam Start:10-Jan-2014 Instruction Type:Patient Education Patient Instructions Indication:Well woman exam with routine gynecological exam Start:10-Jan-2014 Instruction Type:Provider Instructions for Treatment Patient Instructions Indication:Hypercalcemia Start:18-Dec-2013 Instruction Type:Provider Instructions for Treatment Summary Purpose Advance Directives No Advanced Directives Records FoundNo Advanced Directives Records Found Additional Source Comments INFORMATION SOURCE (unrecogn ized section and content) DATE CREATED AUTHOR AUTHOR'S ORGANIZ ATION 09/12/2022 Comprehensive In [employer] FOR RECORDS PERTAINING TO PATIENTS WHO ARE OR HAVE BEEN ENROLLED IN A CHEMICAL DEPENDENCY/SUBSTANCEABUSE PROGRAM, SOME INFORMATION MAY BE OMITTED. This clinical summary was aggregated from multiple sources. Caution should be exercised in using it in the provision of clinical care. This summary normalizes information from multiple sources, and as a consequence, information in this document may materially change the coding, format and clinical context of patient data. In addition, data may be omitted in some cases. CLINICAL DECISIONS SHOULD BE BASED ON THE PRIMARY CLINICAL RECORDS. [employer] provides no warranty or guarantee of the accuracy or completeness of information in this document.
[2023-07-12 18:25] LABS: HPV Reflexed? NOT INDICATED
== END | disposition home or self-care (01) ==
LOC: LABSPEC 16:37
PROVIDERS: PCP Internal Medicine; Referring Provider Nurse Practitioner Women's Health; Visit Provider Nurse Practitioner Women's Health
DX: Z12.4 Encounter for screening for malignant neoplasm of cervix (principal)
CPT/HCPCS: 88175; G0145

== ENCOUNTER → 2023-08-09 | Outpatient (CLI) | payer MEDICARE, SELFPAY ==
--- NOTE | 2023-08-09 08:23 | US_ITS ---
STUDY: ULTRASOUND OF THE FEMALE PELVIS - COMPLETE REASON FOR EXAM: Female, 67 years old. Uterine prolapse LMP: Patient is postmenopausal. TECHNIQUE: Transabdominal and Transvaginal TECHNICAL QUALITY: Adequate. COMPARISON: None. FINDINGS: The uterus is anteverted and is in a midline position. The uterus measures 7.6 cm x 5.2 cm x 2.8 cm. Normal uterine cervix. The endometrium is mildly thickened and measures 2.8 mm in thickness, and is hyperechoic. Small amount of fluid is seen within the endometrium. Questionable 6 mm x 3 mm x 4 mm endometrial polyp. Heterogeneous appearance of the myometrium suggestive of fibroid change. I.U.D. - The patient does not have an I.U.D. The right ovary is non-visualized. The left ovary is visualized. The left ovary measures 1.7 cm x 1.5 cm x 1.0 cm. There is no left ovarian cyst or ovarian mass. There is no visualized left adnexal mass or complex lesion. There is normal arterial and normal venous vascularity. There is no fluid in the cul-de-sac. US/Pelvic w/ Transvaginal IMPRESSION: Slight thickening of the endometrium with small amount of fluid and possible endometrial polyp. Heterogeneous appearance of the myometrium suggestive of fibroid change. Electronically Signed: Denny Crisostomo MD at 14:56 EST ,
== END | disposition home or self-care (01) ==
LOC: US 08:22
PROVIDERS: PCP Internal Medicine; Referring Provider Obstetrics & Gynecology; Visit Provider Obstetrics & Gynecology
DX: N81.10 Cystocele, unspecified (principal); N81.6 Rectocele
CPT/HCPCS: 76830; 76856

== ENCOUNTER 2024-01-04 10:00 | Outpatient (CLI) | payer MEDICARE, SELFPAY ==
--- NOTE | 2024-01-04 08:57 | EKG12_ITS ---
Test Reason : PREOP Blood Pressure : / mmHG Vent. Rate : 084 BPM Atrial Rate : 084 BPM P-R Int : 148 ms QRS Dur : 070 ms QT Int : 360 ms P-R-T Axes : 049 043 134 degrees QTc Int : 425 ms Normal sinus rhythm ST & T wave abnormality, consider anterolateral ischemia Abnormal ECG Confirmed by VIOLET SILVERIO, AMERICA ([id number]), deputy editor in chief SAMMY PIZANO ([id number]) on 01/04/2024 2:21:58 PM Referred By: Karina Robles Confirmed By:AMERICA LAZO MD
[2024-01-04 10:06] LABS: Hematocrit 40.2 % (37-47); Hemoglobin 13.3 g/dL (12.0-15.0); Mean Corp Hgb Conc 33.1 g/dL (32-36); Mean Corpuscular Hgb 30.9 pg (27.0-32.0); Mean Corpuscular Volume 93.3 fL (81-99); Mean Platelet Vol. 9.5 fl (6.2-12.0); Platelet Count 232 K/mm3 (150-450); RBC Distribution Width CV 12.5 % (11.6-14.6); RBC Distribution Width SD 43.2 fl (35.1-43.9); Red Blood Count 4.31 M/mm3 (4.2-5.4); White Blood Count 4.9 K/mm3 (4.4-11.0)
[2024-01-04 10:50] LABS: ALB/GLOB Ratio 1.1 RATIO (0.9-2.4); AST(SGOT) 25 U/L (15-37); Alanine Aminotransfer ALT/SGPT 36 U/L (13-56); Albumin, Serum 3.8 g/dL (3.2-5.0); Alkaline Phosphatase 50 U/L (45-117); Anion Gap 6 (5-15); BUN 22 mg/dL (7-18); BUN/Creat Ratio 25.7 RATIO (10-20); Calcium,Total 9.8 mg/dL (8.5-10.1); Chloride 108 mmol/L (98-107); Creatinine, Serum 0.86 mg/dL (0.55-1.02); EST Glomerular Filtration Rate 70 mL/min (>60); Est Glom Filt Rate - Afr Amer 85 mL/min (>60); Globulin 3.6 g/dL (2.2-4.2); Glucose 99 mg/dL (74-106); Potassium 4.1 mmol/L (3.5-5.1); Protein, Total 7.4 g/dL (6.4-8.2); Sodium Level 141 mmol/L (136-145)
[2024-01-04 11:01] LABS: Magnesium 2.6 mg/dL (1.6-2.6)
== END 2024-01-14 23:59 | disposition home or self-care (01) ==
LOC: PAT 05-25 14:14
PROVIDERS: Anesthesiology; PCP Internal Medicine; Referring Provider Obstetrics & Gynecology; Visit Provider Obstetrics & Gynecology
DX: Z01.818 Encounter for other preprocedural examination (principal)
CPT/HCPCS: 36415; 80053; 83735; 85027; 86850; 86900; 86901; 93005

== ENCOUNTER → 2024-01-25 | Outpatient (CLI) | payer MEDICARE, SELFPAY ==
--- NOTE | 2024-01-25 10:34 | STE_ITS ---
Reason For Study: Pre-Op; Abnormal EKG Stress Results Protocol: Jun Protocol Maximum Predicted HR: 153 bpm Target HR: 130 bpm % Maximum Predicted HR: 105 % DurationHeart Rate Stage (mm:ss) (bpm) BP Comment Baseline 75 126/78No Chest Pain Jun Protocol Stage I 3:00 121 158/70No Chest Pain Jun Protocol Stage II 3:00 141 182/78No Chest Pain Jun Protocol Stage III 3:00 160 204/72No Chest Pain; Mild Dyspnea Recovery 97 138/74No Chest Pain Stress Duration: 9:00 mm:ss Maximum Stress HR: 160 bpm METS: 10 Baseline Echocardiogram Findings Stress Echo Wall motion Data Resting WM Intermediate WM Stress WM ECHO/Stress Test Echo w/o Contrast Interpretation Summary Exercise stress echo. 68-year-old lady for preoperative evaluation. Stress EKG. Resting EKG demonstrates normal sinus rhythm with a rate of 75 bpm normal intervals are noted resting blood pressure is 126/78 mmHg. The patient exercised according to regular Jun protocol for total duration of 9 minutes completing stage III of the Jun prot ocol. Maximum heart rate attained 162 bpm which was 105% of maximum predicted heart rate the maximu m workload was 10.4 metabolic equivalents. At rest there were no ST or T wave changes noted suggest ischemia at peak exercise upsloping ST changes were noted we did not meet the criteria for ische geovanny peak blood pressure was 204/72 mmHg which is a normal blood pressure response to exercise. Resting echocardiogram. The resting echocardiogram demonstrated preserved eject ion fraction of 55%. Patient exercised according to Jun protocol and at peak exercise the ejection fraction was noted to be 65% with no new wall motion abnormalities noted. No clinical angina was p resent. Conclusion: Exercise stress echo with no EKG criteria for ischemia at a high workload. Excellent functional capacity. Ordering Physician: Waqar Avalos Referring Physician: Waqar Avalos Performed By: Will Neely RCS
== END | disposition home or self-care (01) ==
LOC: CVS 10:34
PROVIDERS: PCP Internal Medicine; Visit Provider Internal Medicine Cardiovascular Disease
DX: Z01.810 Encounter for preprocedural cardiovascular examination (principal); R94.31 Abnormal electrocardiogram [ECG] [EKG]
CPT/HCPCS: 93017; 93350

== ENCOUNTER → 2024-05-09 | Outpatient (CLI) | payer MEDICARE, SELFPAY ==
[2024-05-09 10:27] LABS: Hematocrit 38.4 % (37-47); Hemoglobin 12.4 g/dL (12.0-15.0); Mean Corp Hgb Conc 32.3 g/dL (32-36); Mean Corpuscular Hgb 30.7 pg (27.0-32.0); Mean Platelet Vol. 9.6 fl (6.2-12.0); Platelet Count 215 K/mm3 (150-450); RBC Distribution Width CV 12.8 % (11.6-14.6); Red Blood Count 4.04 M/mm3 (4.2-5.4); White Blood Count 5.2 K/mm3 (4.4-11.0)
[2024-05-09 10:53] LABS: Magnesium 2.5 mg/dL (1.6-2.6)
[2024-05-10 12:05] LABS: ALB/GLOB Ratio 1.3 RATIO (0.9-2.4); AST(SGOT) 16 U/L (15-37); Alanine Aminotransfer ALT/SGPT 20 U/L (13-56); Alkaline Phosphatase 45 U/L (45-117); Anion Gap 5 (5-15); BUN 20 mg/dL (7-18); BUN/Creat Ratio 25.4 RATIO (10-20); Calcium,Total 9.1 mg/dL (8.5-10.1); Chloride 111 mmol/L (98-107); Creatinine, Serum 0.79 mg/dL (0.55-1.02); EST Glomerular Filtration Rate 77 mL/min (>60); Est Glom Filt Rate - Afr Amer 94 mL/min (>60); Globulin 3.1 g/dL (2.2-4.2); Glucose 100 mg/dL (74-106); Potassium 4.8 mmol/L (3.5-5.1); Protein, Total 7.1 g/dL (6.4-8.2); Sodium Level 142 mmol/L (136-145)
== END | disposition home or self-care (01) ==
LOC: BWCLAB 09:49
PROVIDERS: Anesthesiology; PCP Internal Medicine; Referring Provider Obstetrics & Gynecology; Visit Provider Obstetrics & Gynecology
DX: Z01.812 Encounter for preprocedural laboratory examination (principal)
CPT/HCPCS: 36415; 80053; 83735; 85027; 86850; 86900; 86901

== ENCOUNTER 2024-05-19 11:21 | Observation (INO) | payer MEDICARE, SELFPAY ==
[2024-05-19] VITALS (15 sets, daily range): BP systolic 117–153; BP diastolic 56–76; PULSE 77–88; RESP 14–20; TEMP 36.3–36.8; O2SAT 95–100; BMI 22.7
[2024-05-19] MEDS: Magnesium 1 GM over 15 mins IV (06:00)
[2024-05-19] MEDS: Lactated Ringers 1,000 ML 40 ML IV (06:14)
[2024-05-19] MEDS: dexAMETHasone 4 MG/ML Vial 8 MG IV (06:14)
[2024-05-19] MEDS: Insulin Lispro 100 UNIT/ML INSULN.PEN SC (06:24)
[2024-05-19] MEDS: Acetaminophen 500 MG Tablet 1000 MG PO (06:33)
[2024-05-19] MEDS: Celecoxib 200 MG Capsule 400 MG PO (06:33)
[2024-05-19] MEDS: Gabapentin 600 MG Tablet PO (06:34)
[2024-05-19 06:47] LABS: Bedside Glucose 186 mg/dL (74-106)
--- NOTE | 2024-05-19 07:04 | PRE.ANES_ITS ---
ASA Classification* ASA Classification ASA Classification: 2 Assessment & Plan Anesthesia* Anesthesia Assessment Anesthesia Assessment: Discussed sedation and/or anesthesia options, risks, benefits, and alternatives with patient/parents/legal guardian/POA. Questions invited. The patient/parents/legal guardian/POA seems to understand and agrees to proceed with anesthesia plan. Reviewed the physical assessment, medical history, allergy history and patient home medications list prior to surgery/procedure/anesthetic and documented any changes. Performed airway and anesthesia risk assessments. Anesthesia Type Anesthesia Type: General Anesthesia Focused Assessment* Temperature: 98.0 F Pulse Rate: 80 Blood Pressure: 150/72 Respiratory Rate: 20 Pulse Ox: 97 Airway Assessment Mouth opens: >3 cm Mallampati Score: II Focused Labs Anesthesia Preop lab: CBC WBC 5.2 K/mm3 (4.4-11.0) 05/09/24 09:50 RBC 4.04 M/mm3 (4.2-5.4) L 05/09/24 09:50 Hgb 12.4 g/dL (12.0-15.0) 05/09/24 09:50 Hct 38.4 % (37-47) 05/09/24 09:50 Plt Count 215 K/mm3 (150-450) 05/09/24 09:50 CHEMISTRY Potassium 4.8 mmol/L (3.5-5.1) 05/09/24 09:49 Sodium 142 mmol/L (136-145) 05/09/24 09:49 Magnesium 2.5 mg/dL (1.6-2.6) 05/09/24 09:49 BUN 20 mg/dL (7-18) H 05/09/24 09:49 Creatinine 0.79 mg/dL (0.55-1.02) 05/09/24 09:49 Glucose 100 mg/dL (74-106) 05/09/24 09:49 POC Glucose 186 mg/dL (74-106) H 05/19/24 06:11 COAG Pre-Assessment Diagnosis/Proposed Procedure Planned Operative Procedure(s): (B) Hysterectomy,Total Vaginal, Possible Bilateral Salpingo-Oophorectomy, Cystoscopy (B) Repair, Anterior & Posterior Blateral SSLF, Sling, Cysto, Bilateral Ureteral Catheterization Anesthesia History Anesthesia History - educator senior clinical: Anesthesia History - educator senior clinical Hx Hospitalization No 05/05/24 09:06 Any Problems With Anesthesia No 05/05/24 09:06 Cholinesterase deficiency No 05/05/24 09:06 You/Your Family Experience No 05/05/24 09:06 fever (hyperthermia) with Relationship Recent Exposure to Contagious No 05/19/24 06:26 Disease Does patient have nerve No 05/05/24 09:06 stimulator Patient instructed to have device shut off --Does patient have Pacemaker No 05/19/24 06:26 or ICD? When Was Last Pacemaker Check QUESTION #4 FULL TEXT: You/Your Family Experience fever (hyperthermia) with Anesthesia Last Oral Intake Last Oral intake: Last Oral Intake NPO since 05:00 05/19/24 06:26 Meds taken in AM with sips of No 05/19/24 06:26 water? Meds patient instructed to take am of surgery PONV PONV - educator senior clinical: PONV - educator senior clinical Female Yes 05/05/24 09:06 HX of Motion Sickness No 05/05/24 09:06 HX of N/V After Surgery Yes 05/05/24 09:06 Non-Smoker Yes 05/05/24 09:06 Duration of Surgery greater Yes 05/05/24 09:06 than 60 minutes Number of Risk Factors 4 05/05/24 09:06 PONV Score Severe Risk 05/05/24 09:06 Height & Weight Height & Weight: Anesthesia: Height & Weight Height 5 ft 6 in 05/19/24 06:26 Weight: 64 kg 05/19/24 06:26 Body Mass Index (BMI) 22.7 05/19/24 06:26 Respiratory Assessment Respiratory Assessment - educator senior clinical: Respiratory Tract Infection Hx - educator senior clinical Hx Respiratory Tract Infection No 05/05/24 09:06 STOP Sleep Apnea STOP Sleep Apnea - educator senior clinical: STOP Sleep Apnea - educator senior clinical Hx Hypertension No 05/05/24 09:06 Hx Sleep Apnea No 05/05/24 09:06 CPAP BIPAP Do you snore loudly (louder No 05/05/24 09:06 than talking or can be heard Do you often feel tired/ No 05/05/24 09:06 fatigued/ sleepy during daytime? Has anyone observed you stop No 05/05/24 09:06 breathing during sleep? STOP Results Negative 05/05/24 09:06 QUESTION #5 FULL TEXT : Do you snore loudly (louder than talking or can be heard through closed doors)? Tobacco Use History Tobacco Use History - educator senior clinical: Tobacco Use History - educator senior clinical Tobacco Use Smoking Status Never smoker 05/05/24 09:06 Hx Tobacco Use No 05/05/24 09:06 Years Smoking Packs Smoked per Day Smoking Cessation Date was within the last 15 years Hx Smoking Cessation Date Hx Smoking Cessation Counseling Hematologic Medial History Hematologic Hx - educator senior clinical: Hematologic Medical Hx - clinical documentation improvement specialist Hx of Blood Transfusion No 05/05/24 09:06 Hx of Transfusion in last 3 No 05/05/24 09:06 Months Date of Last Transfusion (if within last 3 months) Ever experience any problems No 05/05/24 09:06 with transfusion(s)? Specify any problems Hx of Preganancy in last 3 No 05/05/24 09:06 Months Nurse Filling Out Transfusion [place] 05/05/24 09:06 & Questions: Date: 05/05/24 05/05/24 09:06 Time: 09:08 05/05/24 09:06 Patient unable to answer at this time (ie. confused, unrespo /Reproduction History /Reproductive History - educator senior clinical: /Reproductive Hx- educator senior clinical Hx Now No 05/05/24 09:06 Gestational Age (in weeks): EDC: Hx Hx Para Hx Section SAB No 05/09/24 09:16 Active Medications Active Medications: Current Medications Generic Name Dose Route Start Last Admin Trade Name Cesilia PRN Reason Stop Dose Admin Acetaminophen 1,000 mg 05/19/24 07:30 05/19/24 06:33 Acetaminophen 500 Mg Tablet PO 05/19/24 07:31 1,000 mg PREOP ONE Administration Celecoxib 400 mg 05/19/24 07:30 05/19/24 06:33 Celecoxib 200 Mg Capsule PO 05/19/24 07:31 400 mg X1 ONE Administration Dexamethasone Sodium Phosphate 8 mg 05/19/24 07:30 05/19/24 06:14 Dexamethasone 4 Mg/Ml Vial IV 05/19/24 07:31 8 mg X1 ONE Administration Gabapentin 600 mg 05/19/24 07:30 05/19/24 06:34 Gabapentin 600 Mg Tablet PO 05/19/24 07:31 600 mg PREOP ONE Administration Lactated Ringer's 1,000 mls @ 70 mls/hr 05/19/24 07:30 IV .[id number] BROOKE Cefazolin Sodium 2 gm/ N/A 20 mls @ 400 mls/hr 05/19/24 07:30 IV 05/19/24 07:32 PREOP ONE Magnesium Sulfate 1 gm/ 102 mls @ 408 mls/hr 05/19/24 07:30 05/19/24 06:00 Dextrose IV 05/19/24 07:44 408 mls/hr X1 ONE Administration Lactated Ringer's 1,000 mls @ 40 mls/hr 05/19/24 06:00 05/19/24 06:14 IV 05/21/24 07:59 40 mls/hr .Q25H BROOKE Administration Protocol Insulin Human Lispro 0 unit 05/19/24 07:30 05/19/24 06:24 Insulin Lispro 100 Unit/Ml Insuln.Pen SC 1 u Q4H PRN PRN Administration BG >/= 180, SEE PROTOCOL Protocol Ondansetron HCl 4 mg 05/19/24 07:30 Ondansetron 4 Mg/2 Ml Vial IV 05/19/24 07:31 X1 ONE PFSH Medical History History of echocardiogram History of stress test Encounter for pre-operative cardiovascular clearance Bladder prolapse Memory impairment Anxiety Arthritis Vertigo Home Medications ?Medication ?Instructions ?Recorded ?Last Taken ?Type ascorbic acid (vitamin C) 500 mg 500 mg PO DAILY 01/02/21 05/16/24 History tablet (Vitamin C) vitamin B complex (Complex B-100 1 tab PO DAILY 12/23/23 05/16/24 History tablet,extended release) calcium 600 mg (as 1 tab PO DAILY 05/05/24 05/16/24 History carbonate)-vitamin D3 5 mcg (200 unit) tablet (Calcium 600 + D(3)) magnesium 200 mg tablet 200 mg PO BID 05/05/24 05/16/24 History omega 5-efg-fnm-fish oil 1,200 mg cap PO DAILY 05/05/24 05/05/24 History (144 mg-216 mg) capsule (Fish Oil) Allergy/AdvReac Type Severity Reaction Status Date / Time No Known Allergies Allergy Verified 05/19/24 06:10 Family History Mother Cancer ovarian Surgical History History of wisdom tooth extraction S/P oophorectomy Social History household members: spouse housing: house number of children: 9 Smoking Status: Never smoker substance use type: does not use seatbelt use: always do you feel safe at home: Yes additional social history: -[employer] Review of Systems (Anesthesia) ROS Narrative System reviewed and no additional complaints, except as documented.
--- NOTE | 2024-05-19 07:28 | HP.PCM_ITS ---
History and Physical Date of Admission: 05/19/24 Intake Vital Signs 01/18/2415:42 05/09/2409:14 05/09/2409:16 Height 5 ft 6 in 5 ft 6 in 5 ft 6 in Weight: 145 lb 2 oz BMI 23.4 BP 152/67 H Intake Visit Reasons: TVH possible BSO Cysto Dmitry combo Nip Wrapper Required: No Is patient in pain?: No Allergies No Known Allergies Allergy (Verified 05/09/24 09:14) Medications ?Medication ?Instructions ?Recorded ?Confirmed ?Type ascorbic acid (vitamin C) 500 mg 500 mg PO DAILY 01/02/21 05/09/24 History tablet (Vitamin C) vitamin B complex (Complex B-100 1 tab PO DAILY 12/23/23 05/09/24 History tablet,extended release) calcium 600 mg (as 1 tab PO DAILY 05/05/24 05/09/24 History carbonate)-vitamin D3 5 mcg (200 unit) tablet (Calcium 600 + D(3)) magnesium 200 mg tablet 200 mg PO BID 05/05/24 05/09/24 History omega 5-nrw-ctg-fish oil 1,200 mg cap PO DAILY 05/05/24 05/09/24 History (144 mg-216 mg) capsule (Fish Oil) Post menopausal: Yes Patient : No : No PFSH Medical History History of echocardiogram History of stress test Encounter for pre-operative cardiovascular clearance Bladder prolapse Memory impairment Anxiety Arthritis Vertigo Surgical History History of wisdom tooth extraction S/P oophorectomy Family History Mother Cancer ovarian Social History household members: spouse housing: house number of children: 9 Smoking Status: Never smoker substance use type: does not use seatbelt use: always do you feel safe at home: Yes additional social history: -[employer] HPI TVH possible BSO Geraldo Dmitry combo Details: MARY KAPLAN is a 68 year old (all vaginal deliveries) who presents for preoperative exam for hysterectomy and A&P repair with Dr. Andres. She would also like the ovaries removed because her mother had ovarian cancer. Originally we were going to do a robotic hysterectomy, however her cervix was quite stenotic. ultrasound is as follows: FINDINGS: The uterus is anteverted and is in a midline position. The uterus measures 7.6 cm x 5.2 cm x 2.8 cm. Normal uterine cervix. The endometrium is mildly thickened and measures 2.8 mm in thickness, and is hyperechoic. Small amount of fluid is seen within the endometrium. Questionable 6 mm x 3 mm x 4 mm endometrial polyp. Heterogeneous appearance of the myometrium suggestive of fibroid change. I.U.D. - The patient does not have an I.U.D. The right ovary is non-visualized. The left ovary is visualized. The left ovary measures 1.7 cm x 1.5 cm x 1.0 cm. There is no left ovarian cyst or ovarian mass. There is no visualized left adnexal mass or complex lesion. There is normal arterial and normal venous vascularity. There is no fluid in the cul-de-sac. US/Pelvic w/ Transvaginal IMPRESSION: Slight thickening of the endometrium with small amount of fluid and possible endometrial polyp. Heterogeneous appearance of the myometrium suggestive of fibroid change. History 10 Elective abortions Hx Para 9 Spontaneous abortions Hx # Term Pregnancies Ectopic pregnancies Hx # Pregnancies Multiple births # of living children 9 ROS Const ROS Unobtainable: All systems reviewed & are unremarkable except as noted in H Resp Resp: Reports system reviewed and no additional complaints, except as documented; Denies cough GI GI: Reports as per HPI Psych Psych: Reports system reviewed and no additional complaints, except as documented Exam Const General: cooperative, healthy appearing, comfortable and no acute distress Resp Effort & Inspection: normal respiratory effort Skin General: no rashes or lesions noted Psych Appearance: grossly normal Speech and Movement: speech and movement normal Coding Level of Care Code Off vis,est,level 4 Diagnoses 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 Lining 2.8mm No bleeding (2) Cystocele with rectocele: Status: Acute Comment: plans combo procedure JV/HW. (3) Bladder prolapse: Status: Acute Orders: Orders CBC-Complete Blood Cnt No Diff Today Z01.818 - Encounter for other preprocedural examination Type & Screen Today Plan After discussing the patient's diagnosis and treatment plan options, patient wishes to proceed with surgical management. I have discussed with the patient the risks, benefits, and alternatives of the procedure which include but are not limited to risks of anesthesia, bleeding, infection, possible damage to bowel, bladder, or surrounding vasculature which could lead to additional surgery to evaluate any complications. Patient agrees to procedure and wishes to proceed. ACOG/uptodate references given for additional information regarding procedure. will attempt vaginal hysterectomy, may require conversion to LAVh if can not get the ovaries out.
--- NOTE | 2024-05-19 07:28 | PCM.DC ---
Discharge Instructions Diet Discharge Diet: No restrictions Activity Discharge Activity: Return to Normal Activity, May Not Drive (while taking narcotic pain medications.) and May Shower May resume sexual activity in: 6-8 weeks Lifting Restrictions: 10 pounds Dressing / Incision Call your doctor if your incision/area has: Continuous Slow Oozing, Sudden Increased Bleeding, Increased Pain/ Swelling, Increased Redness and Foul Smelling Discharge Call your doctor if you observe: Fever of 101 or Higher, Inability to urinate, Inability to have a bowel movement and Using more than 1 pad per hour Follow Up Care Please Follow Up With: Karina Robles DO Test Results: Test results from this visit will be discussed in further detail at your follow-up appointment, if applicable. Discharge Plan Admission Attending Provider: Karina Robles Primary Care Provider: Love Meza Consulting Providers: Cassie Andres Instructions Print Language: [place] Discharge Orders/Prescriptions Prescriptions: No Action ascorbic acid (vitamin C) [Vitamin C] 500 mg Tablet 500 mg PO DAILY Complex B-100 Tablet Extended Release 1 tab PO DAILY magnesium 200 mg tablet 200 mg PO BID calcium carbonate-vitamin D3 [Calcium 600 + D(3)] 600 mg-5 mcg (200 unit) tablet 1 tab PO DAILY omega 2-ktt-cxo-fish oil [Fish Oil] 1,200 (144-216) mg capsule PO DAILY Referrals / Follow Up: Love Meza DO [Primary Care Provider] - Disposition Disposition (needs filled in before D/C Order can be placed): Home, Self Care
--- NOTE | 2024-05-19 07:30 | HYST_PTH ---
PATIENT: MARY KAPLAN LOC: MS3 U#:[id number] AGE/SX: 68/F ROOM: [facility] [place] RE05/19/[address]: Dr. Karina Robles DO : 1955 BED: 1 DIS: 05/20/2024 SPEC #: [id number] RECD: 05/19/24 12:14 STATUS: FREDERIC CARRClayton #: [id number] ABBIE: 05/19/24 07:[address]: Karina Robles DEPT: SURGICAL PATHOLOGY RECD BY: Kristin Segura ENTERED: 05/19/24 13:24 SP TYPE: HYSTERECT OTHR DR: MD Dr. Love Marquis DO Tissues: Uterus, NOS Procedures: Surgery Specimen Level V HEADER OPERATION: Hysterectomy total vaginal, possible left salpingo-oopherectomy PRE-OP DIAGNOSIS: Stenotic cervical os, cystocele with rectocele, bladder prolapse TISSUE SUBMITTED: Uterus, cervix, left fallopian tube and ovary MICROSCOPIC DIAGNOSIS Uterus, cervix, left fallopian tube and ovary, hysterectomy and left salpingo-oopherectomy: Cervix - Chronic cystic cervicitis. - Benign endocervical polyp. Endometrium - Simple cystic hyperplasia without atypia. Endometrial polyp - benign polyp with simple cystic hyperplasia without atypia. Myometrium - No pathologic diagnosis. Left fallopian tube- No pathologic diagnosis Left ovary- Simple benign epithelial cyst (0.2cm in greatest dimension). 05/22/2024 MICROSCOPIC DESCRIPTION Slides are reviewed. GROSS DESCRIPTION Received in fixative is one container labeled with the patient's name and designated uterus, cervix, left fallopian tube and ovary. The specimen consists of a hysterectomy specimen consisting of uterus with cervix and detached fallopian tube and ovary identified as left fallopian and ovary. The uterus with cervix weighs 78.0 gm and measures 9.0 x 6.0 x 4.0 cm. The serosal surface is congested and ragged. The ectocervical mucosa is unremarkable. The external os is completely stenotic. The endocervical canal measures 4.0 cm in length and the endocervical mucosa is fox glistening and unremarkable. A small endocervical polyp is noted in the posterior endocervical wall measuring 0.5cm in greatest dimension. The triangular endometrial cavity measures 4.0 cm in length and 2.5 cm in width. A sessile polyp is noted occupying the anterior and posterior wall measuring 2.0 x 2.0 x 0.5cm. The rest of the endometrium is fox glistening and measures <0.1 cm in thickness. Myometrial wall underneath the polyp is not indurated. Sections of the uterine wall do not reveal any mass lesions and measures 1.5cm in thickness. The left fallopian tube measures 2.5cm in length and 0.5cm in diameter. Fimbrial end is identified. No tubo-ovarian adhesions are noted. The left ovary measures 2.0 x 1.5 x 1.0cm. Sections reveal unremarkable cut surfaces. Sulfonator Operator sections are submitted in eleven cassettes as follows: 1 - anterior cervix, 2 - posterior cervix and endocervical polyp, 3-5 - anterior uterine wall (cassette 3&4 also contains the polyp), 6-9 (cassette 7 also contain the portion of the polyp in the posterior uterine wall) (most of the endometrium is submitted), 10-left fallopian tube, 11- left ovary. SJ 05/19/2024 TC:5 CPT: 06956
[2024-05-19] MEDS: Cefazolin 2 GM in Syringe IV (07:50)
--- NOTE | 2024-05-19 09:29 | OP.PCM_ITS ---
Problems Associated Problem List Diagnoses (1) Stenotic cervical os: (2) Cystocele with rectocele: (3) Bladder prolapse: Operative Report (Standard) Operative Information Surgery/Procedure Performed: total vaginal hysterectomy, Left salpingo- oophorectomy Surgeon: Karina Robles Date of Procedure: 05/19/24 Procedure Start Time: 08:05 Procedure Stop Time: 09:20 Pre-Operative Diagnosis: pelvic prolapse Post-Operative Diagnosis: pelvic prolapse Select all DRAINS/GRAFTS/IMPLANTS that apply: None Type of Anesthesia: General Estimated Blood Loss: 50cc Specimen collected: Yes Description of specimen(s) removed: uterus, cervix, left ovary and fallopian tube Description of surgery: The patient was prepped and draped in the usual sterile manner for an abdominal perineal procedure. A weighted speculum was placed in the posterior vaginal vault. A Joya catheter was placed of the urethra without difficulty. The cervix was grasped with a single-tooth tenaculum on both its anterior and p osterior lips. With downward traction, a circumferential incision was made on the vaginal mucosa. This allowed dissection and entrance into the posterior cul-de-sac at this time we visualized the uterosacral ligaments. These were clamped and ligated with a #0 Vicryl suture. Cervical vesicle space was then created by both blunt and sharp dissection, allowing us to see the cardinal ligaments. These were clamped and ligated with a #0 Vicryl suture as well. Once in the cervical vesicle space, we were then able to completely ligate the uterosacral cardinal ligament complex with a hand held ligasure and #0 Vicryl suture. The anterior cul-de-sac was then entered sharply. Omentum and intestines were then visualized through the anterior cul-de-sac window and we began removal of the uterine body. Uterine arteries were then clamped and ligated with a #0 Vicryl suture and carried down towards the uterus until complete removal was obtained. #0 Vicryl suture was used on all major pedicles with Dontrell clamping. The tube and ovary was visualized on the left side. The left adnexa was surgically absent. The tubo ovarian complex was doubly ligated with a #0 Vicryl suture The entire vaginal vault was visualized We inspected for hemostasis and this was secured. Angled sutures were placed at 3 and 9:00 using #0 Vicryl suture in the usual manner. Once these angled sutures were placed in tension was applied we could see the peritoneum on either side. We closed the peritoneum with a #0 Vicryl in a running continuous manner. Hemostasis was excellent. We irrigated copiously. The sponge count was correct x2 at this time. We began closure of the vaginal mucosa. #0 Vicryl suture was used to close the vaginal mucosa in an interrupted manner, starting at the 9 and 3:00 positions and meeting in the midline. The Joya catheter was then removed. A cystoscopy was performed by Dr. andres a 70 degree cystoscope through the urethra into the bladder without complication. The bladder was instilled with approximately 250 cc of normal saline. Intraoperative images were made. Ureteral orifices and jets were identified. Dr. Andres passed a ureteral catheter on the left side without difficulty. No suture material was appreciated in the bladder. The bladder was then drained and cystoscope was removed. The Joya catheter was then replaced. The patient tolerated the procedure well sponge lap and needle counts were correct x2 and she is now being brought to the recovery room in stable condition Surgical Findings: uterovaginal prolapse, surgically absent right fallopian tube and ovary. Normal left ovary, normal uterus and stenotic cerix Candle Molder Hand gas meter checker: Yes Loss Prevention Analyst: Agueda Marinelli Tasks completed by assistant chief train dispatcher: Hemostasis: Clamp and Retracting Additional assistant research scientist?: No Complications Complications: No Admit VTE Documentation VTE Present on Admission: Yes VTE Mechan Device Prophylaxis: SCD's VTE Pharm Prophylaxis ordered?: Yes Multi Select Codes Urinary/Genital Urinary/Genital CPT Codes: 42786 TVH <250 gr uterus and Other Procedure See Report (left salpingo-oophorectomy )
[2024-05-19] MEDS: Bupivacaine 0.25% 30 ML Vial (10:27)
[2024-05-19] MEDS: Estrogens,Conj. 1 Tube 1 DOSE (10:48)
--- NOTE | 2024-05-19 11:10 | OP.PCM_ITS ---
Operative Report (Standard) Operative Information Surgery/Procedure Performed: Anterior and posterior repair, right sacrospinous ligament fixation, mid urethral sling, cystoscopy with bilateral ureteral catheterization Surgeon: Cassie Andres Date of Procedure: 05/19/24 Procedure Start Time: 09:20 Procedure Stop Time: 10:54 Pre-Operative Diagnosis: Incomplete uterovaginal prolapse, stress urinary incontinence Post-Operative Diagnosis: Seen Select all DRAINS/GRAFTS/IMPLANTS that apply: Implanted device Implanted device details: Altis mid urethral sling Type of Anesthesia: General Estimated Blood Loss: 25 cc Specimen collected: No Description of surgery: The patient is a 68-year-old female with uterovaginal prolapse who presents for surgical intervention. She was evaluated in the office with testing and informed consent was obtained. She was taken to the operating room and placed on the operating room table. Anesthesia monitored the head, neck, airway, IV access and vital signs throughout the case. Once anesthesia was appropriately administered she was placed into dorsolithotomy position was prepped and draped in usual sterile fashion. Dr. Melchor performed her portion of the procedure and close the vaginal cuff line. The case was then turned over to me. Please see her operative report for full details. The Joya catheter was removed and the cystoscope was inserted through the urethra under direct visualization into the urinary bladder. The prolapse was reduced with a Ray-Shae. The bladder mucosa revealed no evidence of laceration, trauma, foreign body or tumor. The left ureteral orifice was intubated with a 5 Andorran whistle-tip catheter which advanced easily to 15 cm without evidence of injury or obstruction. On the right side the angle of the ureteral orifice was very difficult for intubation and a Glidewire was attempted to be passed and just at that time a strong ureteral jet was observed. The cystoscope was then removed and the Joya catheter was reinserted with 10 cc placed in the balloon. At this time the anterior vaginal wall was isolated and it was determined that the sacrospinous ligament would be better approached posteriorly. The anterior vaginal wall was injected submucosally with Marcaine for hydrostatic dissection and hemostatic control. A vertical midline incision approximately 2 cm in length was made and sharp and blunt dissection was performed in full-thickness fashion bilaterally until the pubocervical fascia was identified laterally. This was brought together in a 2 layer closure with a deep layer using 3-0 PDS followed by 2-0 Vicryl suture. The midline was then closed using running interlocking 2-0 Vicryl. The catheter was then removed and the cystoscope was inserted under direct visualization confirming no evidence of injury. Each ureteral orifice was intubated with the 5 Andorran whistle-tip catheter with some manipulation secondary to J hooking, but then it advanced without difficulty. There is no evidence of injury or obstruction. Attention was then turned posteriorly where the vaginal mucosa was injected submucosally once again for hydrostatic dissection and hemostatic control. A midline 2 cm incision was made and sharp and blunt dissection was performed bilaterally. The rectovaginal fascia was mostly intact aside from in the midline and towards the patient's right side. Dissection continued on the right side until access to the sacrospinous ligament was obtained. The ischial spine was palpable and the ligament was freed from surrounding tissues. The AltaVitason device was used then to pass a 2-0 Ethibond suture into the ligament which was then brought out through the vaginal mucosa at the apex on the right side. The suture was tied into position and the prolapse was reduced. The rectovaginal fascia was then brought together with i nterrupted sutures in 2 layer fashion using 3-0 PDS and 2-0 Vicryl. The midline incision was closed using running interlocking 2-0 Vicryl. Mid urethra was isolated and injected submucosally once again for hydrostatic dissection and hemostatic control. A midline incision was made approximately 2 cm in length and sharp and blunt dissection was performed on either side of the urethra with care being taken to avoid entrance into the urethra. At this time the trocars were utilized to pass the tines of the sling into the transobturator complexes bilaterally. The sling lay flat against the urethra in a good position and this was done using the tensioning suture. The suture was then cut and the midline incision was closed using running interlocking 2-0 Vicryl. The Joya catheter was then removed and the patient was taken out of Trendelenburg and placed in a flat supine position. The cystoscope once again was inserted through the urethra under direct visualization confirming no evidence of injury to the urinary bladder or the urethra. Bilateral ureteral jets were observed. At this time the ureteral orifices were mildly edematous secondary to the previous catheter passages. The cystoscope was removed and the Joya catheter was reinserted and 10 cc were placed in the balloon. The vagina was packed with vaginal packing and estrogen cream. The patient was awakened and taken to the recovery room in good condition. There were no complications during this procedure. Surgical Findings: Cystocele, rectocele and uterine prolapse identified and repaired Semiconductor Dies Loader police worker: Yes Land Survey Technician: Agueda Marinelli Tasks completed by team assistant: Retracting Additional assistant professor of geography?: No Complications Complications: No Admit VTE Documentation VTE Present on Admission: Yes VTE Mechan Device Prophylaxis: SCD's VTE Pharm Prophylaxis ordered?: Yes
--- NOTE | 2024-05-19 11:10 | PCM.POST.ANE ---
Anesthesia: Postop Eval I Current Vital Signs Temperature: 98.1 F Pulse Rate: 81 Blood Pressure: 117/56 Respiratory Rate: 20 Pulse Ox: 97 Oxygen Delivery Method: Room Air Assessment Airway patent: Yes Spontaneous unlabored respirations: Yes Mental status: Asleep nausea: No Vomiting: No Anesthesia Complication: No Fluid Hydration Crystalloid volume administer (ml): 1,500 Total IV fluid infused: 1,500 Progress Note Anesthesia document: Postop Eval 1 completed: Yes
[2024-05-19 12:11] LABS: Anion Gap 4 (5-15); BUN 14 mg/dL (7-18); BUN/Creat Ratio 19.7 RATIO (10-20); Calcium,Total 8.7 mg/dL (8.5-10.1); Chloride 112 mmol/L (98-107); Creatinine, Serum 0.71 mg/dL (0.55-1.02); EST Glomerular Filtration Rate 87 mL/min (>60); Est Glom Filt Rate - Afr Amer 105 mL/min (>60); Estimated Creatinine Clearance 63.88 ml/min; Glucose 156 mg/dL (74-106); Potassium 3.7 mmol/L (3.5-5.1); Sodium Level 143 mmol/L (136-145)
[2024-05-19 12:13] LABS: Bedside Glucose 152 mg/dL (74-106)
[2024-05-19 12:36] LABS: Hematocrit 38.5 % (37-47); Hemoglobin 12.6 g/dL (12.0-15.0); Mean Corp Hgb Conc 32.7 g/dL (32-36); Mean Corpuscular Hgb 31.2 pg (27.0-32.0); Mean Corpuscular Volume 95.3 fL (81-99); Platelet Count 197 K/mm3 (150-450); RBC Distribution Width CV 12.8 % (11.6-14.6); RBC Distribution Width SD 44.3 fl (35.1-43.9); Red Blood Count 4.04 M/mm3 (4.2-5.4); White Blood Count 7.1 K/mm3 (4.4-11.0)
[2024-05-19] MEDS: Lactated Ringers @ 70 MLS/HR 70 ML IV (15:43)
--- NOTE | 2024-05-19 15:45 | NURSING ---
IVF bag completed, MAR is off as this bag was the one that was hanging when pt brought up from OR, there was not 500 cc wasted but couldn't get it off of the MAR unless completed a waste. IVF shortage
--- NOTE | 2024-05-19 16:27 | POSTOPAN2_ITS ---
Anesthesia Postop Eval I Sum Postop Eval Completion status Anesthesia document: Postop Eval 1 completed: Yes Anesthesia Postop Eval I Summary Anesthesia Postop Eval I Summary: Anesthesia Postop Eval I: Assessment Summary Airway patent Yes 05/19/24 11:11 RECRUITMENT ASSISTANT.[email or web address] Spontaneous unlabored Yes 05/19/24 11:11 RECRUITMENT ASSISTANT.JDEF respirations Mental status Asleep 05/19/24 11:11 RECRUITMENT ASSISTANT.JDEF nausea No 05/19/24 11:11 RECRUITMENT ASSISTANT.JDEF Vomiting No 05/19/24 11:11 RECRUITMENT ASSISTANT.JDEF Anesthesia Postop Eval I: Fluid Summary Crystalloid volume administer 1,500 05/19/24 11:11 RECRUITMENT ASSISTANT.JDEF (ml) Colloids volume administered ( ml) Blood Product volume administered (ml) Total IV fluid infused 1,500 05/19/24 11:11 RECRUITMENT ASSISTANT.JDEF Anesthesia Postop Eval I: Summary Notes Anesthesia Complication No 05/19/24 11:11 RECRUITMENT ASSISTANT.JDEF Anesthesia Complication Comment: Post-operative progress note Anesthesia: Postop Eval II Evaluation Mental status: Awake and Calm Pain Level: 1 nausea: No Vomiting: No Complications Anesthesia Complication: No
--- NOTE | 2024-05-19 16:27 | PCM.POSTANE2 ---
Anesthesia Postop Eval I Sum Postop Eval Completion status Anesthesia document: Postop Eval 1 completed: Yes Anesthesia Postop Eval I Summary Anesthesia Postop Eval I Summary: Anesthesia Postop Eval I: Assessment Summary Airway patent Yes 05/19/24 11:11 IS SUPPORT [email or web address] Spontaneous unlabored Yes 05/19/24 11:11 IS SUPPORT ANALYST.JDEF respirations Mental status Asleep 05/19/24 11:11 IS SUPPORT ANALYST.JDEF nausea No 05/19/24 11:11 IS SUPPORT ANALYST.JDEF Vomiting No 05/19/24 11:11 IS SUPPORT ANALYST.JDEF Anesthesia Postop Eval I: Fluid Summary Crystalloid volume administer 1,500 05/19/24 11:11 IS SUPPORT ANALYST.JDEF (ml) Colloids volume administered ( ml) Blood Product volume administered (ml) Total IV fluid infused 1,500 05/19/24 11:11 IS SUPPORT ANALYST.JDEF Anesthesia Postop Eval I: Summary Notes Anesthesia Complication No 05/19/24 11:11 IS SUPPORT ANALYST.JDEF Anesthesia Complication Comment: Post-operative progress note Anesthesia: Postop Eval II Evaluation Mental status: Awake and Calm Pain Level: 1 nausea: No Vomiting: No Complications Anesthesia Complication: No
[2024-05-19] MEDS: Cephalexin 500 MG Capsule PO (21:28)
[2024-05-19] MEDS: Magnesium Chloride 64 MG Delay Rel.Tablet 128 MG PO (21:28)
[2024-05-20 00:13] VITALS: BP 122/59; PULSE 71; RESP 14; TEMP 36.6; O2SAT 94
[2024-05-20 04:30] VITALS: BP 130/65; PULSE 86; RESP 16; TEMP 36.8; O2SAT 95
[2024-05-20] MEDS: Lactated Ringers @ 70 MLS/HR 70 ML IV (04:45)
[2024-05-20] MEDS: Enoxaparin 40 MG/0.4 ML Syringe SC (04:46)
[2024-05-20 08:30] VITALS: BP 135/68; PULSE 81; RESP 18; TEMP 37; O2SAT 96
--- NOTE | 2024-05-20 09:21 | DCINST_ITS ---
Discharge Instructions Diet Discharge Diet: No restrictions Activity Discharge Activity: May Shower and - (no tub bathing, swimming, or hot tubs) May resume sexual activity in: 8 weeks (after exam in the office) Additional Activity Instructions:: no lifting over 5 pounds. no vacuuming. Dressing / Incision Call your doctor if your incision/area has: Continuous Slow Oozing, Sudden Increased Bleeding, Increased Pain/ Swelling, Increased Redness and Foul Smelling Discharge Call your doctor if you observe: Fever of 101 or Higher, Inability to urinate, Inability to have a bowel movement and Using more than 1 pad per hour Follow Up Care Please Follow Up With: Karina Robles DO When: , the office will call to make follow up appointment Test Results: Test results from this visit will be discussed in further detail at your follow- up appointment, if applicable. Discharge Plan Admission Admit Date/Time: 05/19/24 11:22 Attending Provider: Karina Robles Primary Care Provider: Love Meza Consulting Providers: Cassie Andres Discharge Orders/Prescriptions Prescriptions: New oxycodone-acetaminophen [Percocet] 5-325 mg tablet 1 tab PO Q8H PRN (Reason: pain) 5 Days Qty: 10 0RF cephalexin 500 mg capsule 500 mg PO Q12 3 Days Qty: 6 0RF Continued ascorbic acid (vitamin C) [Vitamin C] 500 mg Tablet 500 mg PO DAILY Complex B-100 Tablet Extended Release 1 tab PO DAILY magnesium 200 mg tablet 200 mg PO BID calcium carbonate-vitamin D3 [Calcium 600 + D(3)] 600 mg-5 mcg (200 unit) tablet 1 tab PO DAILY omega 5-apt-vlg-fish oil [Fish Oil] 1,200 (144-216) mg capsule PO DAILY Referrals / Follow Up: Love Meza DO [Primary Care Provider] - Disposition Disposition (needs filled in before D/C Order can be placed): Home, Self Care
--- NOTE | 2024-05-20 09:33 | PCM.PN.GU ---
Subjective Subjective Feeling great, pain controlled, tolerating oral intake. No issues overngiht. Objective Data Objective Data Vital Signs: Vital Signs Temp Pulse Resp BP Pulse Ox O2 Del Method O2 Flow Rate 98.2 F 86 16 130/65 H 95 Room Air 2 05/20/24 04:30 05/20/24 04:30 05/20/24 04:30 05/20/24 04:30 05/20/24 04:30 05/20/24 04:30 05/19/24 13:19 Oxygen Flow Rate (L/min) 2 Oxygen Delivery Method Room Air Weight: 64 kg Body Mass Index (BMI) 22.7 Intake & Output: Intake and Output for Last 24 Hours 05/18/24 05/19/24 05/20/24 23:59 23:59 23:59 Intake Total 1482.84 / 1732.84 1162.33 / 1162.33 Output Total 1300 / 2300 1000 / 1000 Balance 182.84 / -567.16 162.33 / 162.33 Lab / Micro Data 05/19/24 11:45 05/19/24 11:45 Labs: Laboratory Results - last 24 hr 05/19/24 11:45: WBC 7.1, RBC 4.04 L, Hgb 12.6, Hct 38.5, MCV 95.3, MCH 31.2, MCHC 32.7, RDW Std Deviation 44.3 H, RDW Coeff of Thompson 12.8, Plt Count 197, MPV 10.0, Sodium 143, Potassium 3.7, Chloride 112 H, Carbon Dioxide 27.0, Anion Gap 4 L, BUN 14, Creatinine 0.71, Estim Creat Clear Calc 63.88, Est GFR (MDRD) Af Amer 105, Est GFR (MDRD) Non-Af 87, BUN/Creatinine Ratio 19.7, Glucose 156 H, Calcium 8.7 05/19/24 11:56: POC Glucose 152 H Physical Exam Narrative abdomen soft non-distended urine clear in smith tubing catheter and packing removed scd's in place, IS at bedside she reports using it Const alert, oriented x3 and no apparent distress Assessment & Plan Assessment/Plan (1) Cystocele with rectocele: PLAN: trial of void home later today
[2024-05-20] MEDS: Cephalexin 500 MG Capsule PO (11:43)
[2024-05-20] MEDS: Magnesium Chloride 64 MG Delay Rel.Tablet 128 MG PO (11:43)
--- NOTE | 2024-05-20 11:52 | CASEMGMT ---
BRAYAN BENTON NOTE: Intro role of CM to patient and HARP form explained re: Observation status for treatment of uterovaginal prolapse.? Explained hospitalization will be paid per?her insurance policy for Outpatient billing?and condition will continue to be evaluated for Inpt necessity. Also let pt know that [facility] sends paper in the billing packet with their phone number if questions arise. Pt verbalizes understanding and does not have further questions. ?Form signed, copy made and placed in chart, and original given to pt. Neo PORTER RN CM
[2024-05-20 12:00] VITALS: BP 131/66; PULSE 80; RESP 16; TEMP 36.7; O2SAT 95
--- NOTE | 2024-05-20 12:15 | NURSING ---
Dr Andres updated on bladder scan results of 20 ml post void
== END 2024-05-20 14:03 | disposition home or self-care (01) ==
LOC: MS3 18:35 → SDC 05-23 14:39
PROVIDERS: Urology; Admitting Provider Obstetrics & Gynecology; PCP Internal Medicine; Referring Provider Obstetrics & Gynecology; Visit Provider Obstetrics & Gynecology
PROC: (CPT 58260; principal; 2024-05-19 07:10)
PROC: (CPT 57260; 2024-05-19 07:10)
DX: N81.2 Incomplete uterovaginal prolapse (principal); N84.0 Polyp of corpus uteri; N39.3 Stress incontinence (female) (male); N32.89 Other specified disorders of bladder; N88.2 Stricture and stenosis of cervix uteri; M19.90 Unspecified osteoarthritis, unspecified site
CPT/HCPCS: 58262; 57288; 57260; 00944; 80048; 82962; 85027; 88307; 94668; 96372; 96374; 99221; J7120; C1758; G0378; J2405; J3475

== ENCOUNTER → 2024-10-17 | Outpatient (CLI) | payer MEDICARE, SELFPAY ==
--- NOTE | 2024-10-17 10:05 | BD_ITS ---
PROCEDURE: DEXA BONE DENSITY STUDY 10/17/2024 REASON FOR EXAM: F, age 68 y/o . Postmenopausal. TECHNIQUE: DXA scan of the lumbar spine and both hips, using make and model. REFERENCE LINKS: ISCD Adult Positions COMPARISON: Comparison is made with prior study dated September 09, 2022. FINDINGS: BMD and T-SCORES Lumbar spine: 0.859 g/cm2, T-Score -1.7 L1 through L4 Change from prior: Worsening of 4.5% Left femoral neck: 0.650 g/cm2, T-Score -1.8 Femoral neck comparison data not recommended for monitoring change. Left total hip: 0.764 g/cm2, T-Score -1.5 Change from prior: Worsening of 3.3% Right femoral neck: 0.695 g/cm2, T-Score -1.4 Femoral neck comparison data not recommended for monitoring change. Right total hip: 0.764 g/cm2, T-Score -1.5 Change from prior: Worsening of 3.1% Fracture Risk Calculation: FRAX (10-year Fracture Risk) Score: FRAX scores should never be reported in a patient with osteoporosis on DEXA or for any patient that is on bone medication. The patient doesmeet the pharmacological treatment recommendations for prevention of osteoporosis BD/Dexa Bone Density Study IMPRESSION: OSTEOPENIA. Recommend follow-up as clinically warranted. Reading Location: [place] [id number]
--- NOTE | 2024-10-17 10:30 | BI_ITS ---
EXAM: SCRN MAMM (CAD)W/NICKY BILAT DATE: 10/17/2024 CLINICAL HISTORY: F, Age 68 y/o , SCREENING MAMMOGRAM No BREAST CANCER RISK ASSESSMENT: Not assessed. TECHNIQUE: Bilateral screening digital breast tomosynthesis with 2D and 3D images. Computer aided detection. COMPARISON: Prior exam(s) dated September 09, 2022.. FINDINGS: TISSUE DENSITY: The breast tissue is composed of scattered area of fibroglandular density. Bilateral Breast Mammographic Findings: No significant masses, calcifications or other abnormalities are identified. Stable bilateral secretory calcifications. No suspicious masses, areas of developing architectural distortion, or suspicious calcifications. There has been no significant interval change. BI/SCRN MAMM (CAD)W/NICKY BILAT IMPRESSION: Right Breast: BIRADS 2 BENIGN FINDING. Left Breast: BIRADS 2 BENIGN FINDING. OVERALL FINAL ASSESSMENT: BIRADS 2 BENIGN FINDING RECOMMENDATION: Routine annual follow-up in 1 Year A letter with findings and recommendations will be mailed to the patient. Reading Location: [place] [id number]
== END | disposition home or self-care (01) ==
LOC: OPBD 09:59
PROVIDERS: PCP Internal Medicine; Referring Provider Internal Medicine; Visit Provider Internal Medicine
DX: Z13.820 Encounter for screening for osteoporosis (principal); Z78.0 Asymptomatic menopausal state; Z12.31 Encounter for screening mammogram for malignant neoplasm of breast
CPT/HCPCS: 77063; 77067; 77080

== ENCOUNTER 2025-04-09 12:00 | Outpatient (CLI) | payer MEDICARE, SELFPAY ==
[2025-04-09 12:07] LABS: Mucous, Urine 0 SEEN /hpf (<or=2+)
[2025-04-09 15:45] LABS: Creatinine, Urine (random) 40.80 mg/dL (28.00-217.00); Microalbumin,Random Urine < 12.0 mg/L (<20 mg/L)
[2025-04-09 15:48] LABS: Hematocrit 37.0 % (37-47); Hemoglobin 12.7 g/dL (12.0-15.0); Immature Granulocytes Count 0.020 X10^3/uL (0.0-0.0); Mean Corp Hgb Conc 34.3 g/dL (32-36); Mean Corpuscular Volume 90.7 fL (81-99); Mean Platelet Vol. 9.2 fl (6.2-12.0); NRBC Flagged by Analyzer 0 % (0-5); Platelet Count 210 K/mm3 (150-450); RBC Distribution Width CV 13.2 % (11.6-14.6); RBC Distribution Width SD 43.1 fl (35.1-43.9); Red Blood Count 4.08 M/mm3 (4.2-5.4); White Blood Count 5.2 K/mm3 (4.4-11.0)
[2025-04-09 16:32] LABS: AST(SGOT) 21 U/L (<=31); Alanine Aminotransfer ALT/SGPT 23 U/L (<=34); Albumin, Serum 4.4 g/dL (3.4-4.8); Alkaline Phosphatase 47 U/L (35-104); Anion Gap 13 (5-15); BUN 14 mg/dL (4-19); BUN/Creat Ratio 20.5 RATIO (10-20); Calcium,Total 9.6 mg/dL (7.6-11.0); Carbon Dioxide 23.5 mmol/L (21.0-32.0); Chloride 106 mmol/L (98-108); Cholesterol 115 mg/dL (<=200); Globulin 2.7 g/dL (2.2-4.2); Glucose 99 mg/dL (70-99); Low Density Lipoprotein Calc. 32 mg/dL; Potassium 4.3 mmol/L (3.3-5.1); Triglycerides 49 mg/dL; Very Low Density Lipoprotein 10 mg/dL (5-40); cholesterol:hdl ratio screen 1.56
[2025-04-09 18:11] LABS: Color, Urine Straw (Yellow); Glucose, Dipstick Normal (Normal); Ketone-Dipstick Negative (Negative); Leukocyte Esterase-Dipstick Negative /ul (Negative); Nitrite-Dipstick Negative (Negative); Occult Blood-Urine Negative /ul (Negative); Protein-Dipstick Negative (Negative); Specific Gravity, Urine 1.005 (1.002-1.030); Urine Bilirubin Dipstick Negative (Negative)
[2025-04-09 21:44] LABS: Red Blood Cells-Urine 0-5 SEEN /hpf (0-5); Squamous Epithelial Cells - UA 0-5 SEEN /hpf (5-10)
== END 2025-04-09 23:59 | disposition home or self-care (01) ==
LOC: MTLAB 12:02
PROVIDERS: PCP Internal Medicine; Referring Provider Internal Medicine; Visit Provider Internal Medicine
DX: Z13.220 Encounter for screening for lipoid disorders (principal); R73.01 Impaired fasting glucose; R03.0 Elevated blood-pressure reading, without diagnosis of hypertension
CPT/HCPCS: 36415; 80053; 80061; 81001; 82043; 82570; 83036; 84443; 85025